=== PATIENT | male | born 1960 | race Caucasian/White ===

== ENCOUNTER → 2018-06-28 09:14 | Outpatient (CLI) | payer OTHER, SELFPAY ==
[2018-06-28 09:48] LABS: Hemoglobin A1C% w Est Avg Glu 6.2 % (4.0-6.0)
[2018-06-28 09:56] LABS: Alanine Aminotransferase 45 IU/L (21-72); Albumin 4.6 g/dL (3.5-5.0); Albumin Globulin Ratio 1.5 (1.0-2.8); Alkaline Phosphatase 69 U/L (38-126); Aspartate Aminotransferase 29 IU/L (17-59); BUN Creatinine Ratio 16.7 (6-22); Bilirubin Total 0.7 mg/dL (0.2-1.3); Blood Urea Nitrogen 15 mg/dL (9-20); Calcium 9.5 mg/dL (8.4-10.2); Carbon Dioxide 27 mmol/L (22-32); Chloride 102 mmol/L (98-107); Cholesterol 193 mg/dL (140-199); Estimated Glomerular Filt Rate > 60.0 mL/min (>60); Globulin 3.1 g/dL (1.7-4.1); Glucose 120 mg/dL (70-100); HDL Cholesterol 36 mg/dL (40-60); HEMOLYSIS < 15 (0-50); LDL Cholesterol Calculated 135 mg/dL (<100); Potassium 4.9 mmol/L (3.4-5.1); Sodium 140 mmol/L (137-145); Total Protein 7.7 g/dL (6.3-8.2); Triglycerides 108 mg/dL (35-150)
[2018-06-28 09:57] LABS: Creatinine Urine Random 116.9 mg/dL
[2018-06-28 10:12] LABS: Microalbumi Creatinin Ratio Ur 5.1 ug/mg CR (<30); Microalbumin Urine Random < 0.6 mg/dL (0-1.6)
== END ==
PROVIDERS: PCP Family Medicine; Visit Provider Family Medicine
DX: E11.9 Type 2 diabetes mellitus without complications (principal)
CPT/HCPCS: 36415; 80053; 80061; 82043; 82570; 83036

== ENCOUNTER → 2019-02-13 06:59 | Outpatient (CLI) | payer OTHER, SELFPAY ==
[2019-02-13 07:33] LABS: Hemoglobin A1C% w Est Avg Glu 5.9 % (4.0-6.0)
[2019-02-13 07:40] LABS: Alanine Aminotransferase 22 IU/L (21-72); Albumin 4.2 g/dL (3.5-5.0); Albumin Globulin Ratio 1.3 (1.0-2.8); Alkaline Phosphatase 59 U/L (38-126); Aspartate Aminotransferase 26 IU/L (17-59); Bilirubin Total 0.7 mg/dL (0.2-1.3); Blood Urea Nitrogen 12 mg/dL (9-20); Calcium 8.6 mg/dL (8.4-10.2); Carbon Dioxide 25 mmol/L (22-32); Chloride 101 mmol/L (98-107); Cholesterol 157 mg/dL (140-199); Estimated Glomerular Filt Rate > 60.0 mL/min (>60); Globulin 3.3 g/dL (1.7-4.1); Glucose 137 mg/dL (70-100); HDL Cholesterol 27 mg/dL (40-60); LDL Cholesterol Calculated 107 mg/dL (<100); Potassium 4.6 mmol/L (3.4-5.1); Sodium 137 mmol/L (137-145); Total Protein 7.5 g/dL (6.3-8.2); Triglycerides 114 mg/dL (35-150); VLDL Cholesterol Calculated 23 mg/dL (2-30)
[2019-02-13 07:42] LABS: HEMOLYSIS 59 (0-50)
[2019-02-13 08:19] LABS: Creatinine Urine Random 72.9 mg/dL
[2019-02-13 08:28] LABS: Microalbumi Creatinin Ratio Ur 27.4 ug/mg CR (<30)
== END ==
PROVIDERS: PCP Family Medicine; Visit Provider Family Medicine
DX: E11.9 Type 2 diabetes mellitus without complications (principal)
CPT/HCPCS: 36415; 80053; 80061; 82043; 82570; 83036

== ENCOUNTER → 2020-05-25 14:12 | Outpatient (CLI) | payer OTHER, SELFPAY ==
[2020-05-25 15:45] LABS: Prostate Specific Antigen 16.2 ng/mL (0.10-4.00)
== END ==
PROVIDERS: PCP Family Medicine; Referring Provider Specialist; Visit Provider Specialist
DX: N40.0 Benign prostatic hyperplasia without lower urinary tract symptoms (principal)
CPT/HCPCS: 36415; 84153

== ENCOUNTER → 2020-07-25 12:43 | Outpatient (CLI) | payer OTHER, SELFPAY ==
[2020-07-25 16:50] LABS: Clostridium Difficile Tox PCR Positive for C. diff
[2020-07-26 15:50] LABS: C difficie Toxins A and B, EIA Negative (Negative)
== END ==
PROVIDERS: Referring Provider Specialist; Visit Provider Specialist
DX: R19.7 Diarrhea, unspecified (principal)
CPT/HCPCS: 87493

== ENCOUNTER → 2020-08-02 16:23 | Outpatient (CLI) | payer OTHER, SELFPAY ==
--- NOTE | 2020-08-02 16:25 | DI.RAD.S_ITS ---
PROCEDURE: XR CHEST 2V INDICATIONS: Prostate cancer TECHNIQUE: 2 views of the chest were acquired. COMPARISON: None. FINDINGS: Surgical changes and devices: None. Lungs and pleura: Lungs are clear. No pleural effusions or pneumothorax. Mediastinum: Mediastinal contours are normal. Heart size is normal. Bones and chest wall: No suspicious bony abnormalities, although chest radiographs are insensitive for osseous metastatic disease. Mild deformity of the right-sided ribs may be related to prior trauma. Soft tissues appear unremarkable. IMPRESSION: No acute cardiopulmonary abnormality. Mild deformity of the right lateral ribs may be related to prior trauma of indeterminate age. If there is suspicion for metastatic disease in chest, cross-sectional imaging with CT may be obtained. Dictated by: Beau Kruger M.D. on 08/02/2020 at 16:38 Approved by: Beau Kruger M.D. on 08/02/2020 at 16:42
== END ==
PROVIDERS: Referring Provider Specialist; Visit Provider Specialist
DX: C61 Malignant neoplasm of prostate (principal)
CPT/HCPCS: 71046

== ENCOUNTER → 2020-08-09 16:59 | Outpatient (CLI) | payer OTHER, SELFPAY ==
[2020-08-09 18:13] LABS: BUN Creatinine Ratio 16.5 (6-22); Blood Urea Nitrogen 17 mg/dL (9-20); Carbon Dioxide 30 mmol/L (22-32); Chloride 104 mmol/L (98-107); Estimated Glomerular Filt Rate > 60.0 mL/min (>60); Glucose 122 mg/dL (80-110); HEMOLYSIS < 15 (0-50); Potassium 4.4 mmol/L (3.4-5.1); Sodium 138 mmol/L (137-145)
== END ==
PROVIDERS: Referring Provider Specialist; Visit Provider Specialist
DX: R94.4 Abnormal results of kidney function studies (principal)
CPT/HCPCS: 36415; 80048

== ENCOUNTER → 2020-08-10 09:08 | Outpatient (CLI) | payer OTHER, SELFPAY ==
--- NOTE | 2020-08-10 09:08 | DI.NM.S_ITS ---
PROCEDURE: NM BONE SCAN WHOLE BODY RADIOPHARMACEUTICAL: 21 mCi Tc-99m MDP IV. INDICATIONS: prostate cancer TECHNIQUE: Delayed whole-body scintigrams were obtained approximately 3-4 hours after intravenous injection of radiotracer. Anterior and posterior views were acquired from vertex to feet. COMPARISON: None. FINDINGS: Degenerative uptake of radiotracer at the acromioclavicular, glenohumeral, knee, and ankle joints bilaterally. Otherwise normal uptake. IMPRESSION: No evidence of metastatic disease. Multifocal degenerative uptake. Dictated by: Minnie Romero M.D. on 08/10/2020 at 13:59 Approved by: Minnie Romero M.D. on 08/10/2020 at 14:00
--- NOTE | 2020-08-10 09:31 | DI.CT.S_ITS ---
PROCEDURE: CT CHEST ABD PEL W CON INDICATIONS: Prostate cancer TECHNIQUE: After the administration of oral and intravenous contrast, 5 mm thick sections acquired from the lung apices to the symphysis. 5 mm coronal and sagittal reformats were performed, with additional 7 mm coronal MIP reformats through the lungs. For radiation dose reduction, the following was used: automated exposure control, adjustment of mA and/or kV according to patient size. COMPARISON: [facility], CT, IVP (ABD & PEL WWO CONTRAST), 11/28/2016, 13:14. FINDINGS: Image quality: Excellent. CHEST: Lungs and pleura: No acute airspace opacities. No pleural effusions or pneumothorax. Central and peripheral airways appear patent and normal in caliber. Mediastinum: Heart size is normal. Atherosclerotic calcifications are noted in the aorta, great vessels and the coronary vasculature. No pericardial effusion. No mediastinal or hilar adenopathy by size criteria. Thoracic aorta and central pulmonary arteries are normal in size. Esophagus is normal in caliber. No hiatal hernia. Chest wall: No axillary or supraclavicular adenopathy by size criteria. Thyroid gland is within normal limits where visualized. ABDOMEN: Solid organs: Liver is normal in size and enhancement. 1.8 centimeter cyst noted in the left hepatic lobe. Gallbladder is normal. Biliary system is non dilated. Pancreas enhances normally. Spleen is normal in size and enhancement. No adrenal nodules. Kidneys demonstrate normal size and enhancement, without hydronephrosis. Peritoneum and bowel: Bowel loops demonstrate normal wall thickness and caliber. No free fluid or air. Appendix is normal. Nodes and vessels: No retroperitoneal or mesenteric adenopathy by size criteria. Prominent peripancreatic lymph node is noted which does not meet pathologic size criteria and which is stable compared to November 28, 2016. Aorta and inferior vena cava are normal in size. Scattered atherosclerotic calcifications involving the abdominal and pelvic vasculature. Miscellaneous: No ventral hernias. PELVIS: Genitourinary: Bladder wall thickness is normal. Prostate is enlarged. Miscellaneous: No inguinal adenopathy. Small bilateral fat containing inguinal hernias. Bones: No suspicious bony lesions. No vertebral body compression fractures. Spine degenerative disc disease and facet arthropathy. IMPRESSION: 1. No evidence of metastatic disease. 2. Bilateral fat containing inguinal hernias. 3. Mild prostate gland enlargement. 4. Atherosclerosis including scattered atherosclerotic calcifications in the coronary vasculature. Dictated by: Teresa Avery MD, PhD on 08/10/2020 at 11:16 Approved by: Teresa Avery MD, PhD on 08/10/2020 at 11:57
== END ==
PROVIDERS: Referring Provider Specialist; Visit Provider Specialist
DX: C61 Malignant neoplasm of prostate (principal); K40.20 Bilateral inguinal hernia, without obstruction or gangrene, not specified as recurrent; I25.10 Atherosclerotic heart disease of native coronary artery without angina pectoris
CPT/HCPCS: 71260; 74177; 78306; A9503

== ENCOUNTER → 2020-08-24 10:18 | Outpatient (CLI) | payer OTHER, SELFPAY ==
[2020-08-24 16:06] LABS: Clostridium Difficile Tox PCR Positive for C. diff
[2020-08-25 13:13] LABS: C difficie Toxins A and B, EIA Positive (Negative)
== END ==
PROVIDERS: PCP Family Medicine; Referring Provider Specialist; Visit Provider Specialist
DX: R19.7 Diarrhea, unspecified (principal)
CPT/HCPCS: 87493

== ENCOUNTER → 2024-09-10 08:26 | Outpatient (CLI) | payer MEDICARE, OTHER, SELFPAY ==
--- NOTE | 2024-09-10 08:30 | DI.US.S_ITS ---
PROCEDURE: US ABD AORTA ANEURYSM SCREEN INDICATIONS: AAA SCREENING/HX OF SMOKING TECHNIQUE: Real time scanning was performed of the aorta and iliac arteries, with image documentation. COMPARISON: None. FINDINGS: Aorta: Proximal aortic diameter measures 2.7 x 2.5 cm. Mid-aorta measures 2.1 x 1.9 cm. Distal aortic diameter is 1.4 x 1.5 cm. Iliac arteries: Right common iliac artery measures 1.2 cm. Left common iliac artery measures 1.0 cm. IMPRESSION: No aortic aneurysm found. No area of aortic stenosis. Dictated by: Mason Cortez M.D. on 09/10/2024 at 9:55 Approved by: Mason Cortez M.D. on 09/10/2024 at 9:55
== END ==
PROVIDERS: PCP Family Medicine; Referring Provider Family Medicine; Visit Provider Family Medicine
DX: Z13.6 Encounter for screening for cardiovascular disorders (principal); Z87.891 Personal history of nicotine dependence
CPT/HCPCS: 76706